=== PATIENT | male | born 1985 ===

== ENCOUNTER 2019-06-17 15:00 | Emergency (ER) | payer SELFPAY ==
[~2019-06-17] VITALS: Wt 68.4 kg
[2019-06-17] MEDS ORDERED: CEPHALEXIN500 M2 PO (17:09)
[2019-06-17 17:25] VITALS: BP 130/89
== END 2019-06-17 17:50 | disposition home or self-care (01) ==
LOC: ED 15:00
DX: S91.041A Puncture wound with foreign body, right ankle, initial encounter (principal); F17.210 Nicotine dependence, cigarettes, uncomplicated; W29.4XXA Contact with nail gun, initial encounter
CPT/HCPCS: 90714; J3010